=== PATIENT | female | born 1975 ===

== ENCOUNTER 2018-10-25 07:38 | Outpatient (CLI) | payer OTHER | END 2018-10-25 07:39 | disposition home or self-care (01) | LOC: C.PAT 07:38 | DX: O03.4 Incomplete spontaneous abortion without complication (principal) ==

== ENCOUNTER 2018-10-29 08:18 | Day surgery (SDC) | payer OTHER ==
[2018-10-29 08:31] VITALS: BMI 26.9
[2018-10-29] MEDS ORDERED: HYDROmorphone 0.5 mg/0.5 ml ISec IVP PRN ×2 (09:17→12:09)
[2018-10-29] MEDS ORDERED: Midazolam 2 MG/2 ML VIAL ONE (11:15)
[2018-10-29] MEDS ORDERED: Propofol 10 mg/ml Inj (20 ML) ONE (11:15)
[2018-10-29] MEDS ORDERED: Doxycycline 100 mg Inj ONE (11:17)
[2018-10-29] MEDS ORDERED: Oxytocin 10 Units/ml Inj ONE ×2 (11:17→11:50)
--- NOTE | 2018-10-29 12:08 | PCM.SURG1 ---
Surgeon's Initial Post Op Note - Surgeon's Notes Surgeon: Dr. Hawk Dobie Man: None Type of Anesthesia: General LMA Anesthesia Administered By: Dr Ortiz Pre-Operative Diagnosis: 42 yo with Demise with Fibroid uterus Operative Findings: av uterus 14-15 Post-Operative Diagnosis: Demise AT 13 WKS Operation Performed: Suction D and C Specimen/Specimens Removed: POCS Estimated Blood Loss: EBL {In ML}: 300 Blood Products Given: N/A Drains Used: No Drains Post-Op Condition: Good Date of Surgery/Procedure: 10/29/18 Time of Surgery/Procedure: 12:07
[2018-10-29 14:28] VITALS: BP 118/72; PULSE 81; RESP 18; TEMP 98; O2SAT 100
--- NOTE | 2018-10-30 06:21 | OP ---
PROCEDURE DATE: 10/29/2018 PREOPERATIVE DIAGNOSIS: A 42-year-old female with demise at 13 with multiple leiomyoma. POSTOPERATIVE DIAGNOSIS: A 42-year-old female with demise at 13 with multiple leiomyoma. PROCEDURE: Suction D and C. SURGEON: Flor Hawk MD ANESTHESIA ADMINISTERED BY: Rachel Ortiz MD TYPE OF ANESTHESIA: General LMA . COMPLICATIONS: None. ESTIMATED BLOOD LOSS: 300 mL. SPECIMEN: POC. DESCRIPTION OF PROCEDURE: The patient was informed of the risk factors, benefits, and alternatives of the procedure. Risks factors included infection, bleeding, damage to surrounding organs and tissue, complication of anesthesia and possible . She also was informed that because she was 13 weeks, there was always the possibility of retention of tissue and would require another suction D and C as well as because the uterus is so large, she is at risk for uterine perforation and possible hysterectomy. So, all questions were answered. Informed consent was obtained. She was then taken to the operating room, prepped and draped under sterile condition. A sterile speculum was placed into the vagina. The anterior lip of the cervix was grasped with a single-toothed tenaculum. The uterus was gently sounded to about like 15 cm. Then, 9 mm suction was utilized in order to clear the uterus of the products of conception. Sharp curettage was also performed. Excellent hemostasis was noted. Upon completion, all instruments were removed from the vagina. Instrument and lap counts were correct x2. The patient was then taken to the recovery room in stable condition and instructed to follow up in the office in approximately 2 weeks. Flor Hawk MD
== END 2018-10-29 15:12 | disposition home or self-care (01) ==
LOC: C.SDS 08:18
PROVIDERS: ATTEND Obstetrics & Gynecology
DX: O02.1 Missed abortion (principal); O34.11 Maternal care for benign tumor of corpus uteri, first trimester; D25.9 Leiomyoma of uterus, unspecified; Z3A.13 13 weeks gestation of pregnancy
CPT/HCPCS: 36415; 59820; 86850; 86900; 88233; 88262; 88305; J1100; J2001; J2250; J2405; J2590; J2704; J2765; J3010